=== PATIENT | female | born 1950 | race African-American/Black ===

== ENCOUNTER 2023-01-02 06:35 | Emergency (ER) | payer MEDICARE, SELFPAY ==
[2023-01-02] VITALS (37 sets, daily range): BP systolic 79–120; BP diastolic 52–79; PULSE 85–105; RESP 14–18; TEMP 36.3–36.4; O2SAT 86–100
--- NOTE | ~2023-01-02 | CT_ITS ---
EXAMINATION: CT abdomen pelvis wo con DATE: 01/02/2023 07:46 INDICATION: Nausea and vomiting. Diarrhea. TECHNIQUE: Computed tomography (CT) of the abdomen and pelvis was performed without intravenous contr ast. Automated exposure control and iterative reconstruction technique were employed. The dose-length product was 689.51 mGy-cm. COMPARISON: None. FINDINGS: The visualized portions of the lung bases demonstrate mild atelectasis. There is a small pn eumatocele in right upper lobe. No pleural effusion. The heart size is normal. There are coronary art tigre calcifications. No pericardial effusion. There is a small sliding hiatal hernia. There is diffuse hepatic steatosis. The gallbladder, spleen, and pancreas are normal. There is thickening of the adre nal glands, likely benign. The kidneys are normal. There is no urolithiasis. There is liquid stool in the colon correlating with the symptom of diarrhea. There is diverticulosis of the colon without shyam dence of diverticulitis. The appendix is normal. There is mild aortic atherosclerosis. There are no p athologically enlarged lymph nodes. There is no free intraperitoneal fluid. There is mild thoracolumb ar spondylosis. IMPRESSION: 1. Small sliding hiatal hernia. 2. Diffuse hepatic steatosis. Reviewed, dictated and finalized at location A.
[2023-01-02 07:03] LABS: Basophils Absolute Auto 0.1 K/mm3 (0.0-0.1); Basophils Percent Auto 0.3 % (0.2-1.2); Eosinophils Absolute Auto 0.1 K/mm3 (0-0.3); Eosinophils Percent Auto 0.3 % (0-4.4); Hematocrit 43.2 % (37.0-47.0); Hemoglobin 12.9 g/dL (12.0-15.0); Immature Granulocyte Absolute 0.11 K/mm3 (0.00-0.031); Immature Granulocyte Percent A 0.5 % (0-0.5); Lymphocytes Absolute Auto 1.99 K/mm3 (0.9-3.2); Lymphocytes Percent Auto 8.8 % (18.3-44.2); Mean Corpuscular HGB Conc 29.9 g/dl (32-36); Mean Corpuscular Hemoglobin 26.4 pg (26-34); Mean Corpuscular Volume 88.5 fl (80-100); Mean Platelet Volume 9.5 fl (7.4-10.4); Monocytes Absolute Auto 0.8 K/mm3 (0.1-0.6); Monocytes Percent Auto 3.3 % (2.6-8.5); Neutrophils Absolute Auto 19.5 K/mm3 (1.3-6.7); Neutrophils Percent Auto 86.8 % (45.5-73.1); Platelet Count Result 371 k/mm3 (150-375); Red Blood Count 4.88 M/mm3 (4.2-5.4); Red Cell Distribution Width 13.8 % (11.5-14.5); White Blood Count 22.5 K/mm3 (4.5-10.0)
--- NOTE | 2023-01-02 07:15 | ED.NAVMDI ---
HPI - Nausea/Vomiting/Diarrhea General Chief complaint: Nausea/Vomiting/Diarrhea Stated complaint: vomiting, diarrhea for a couple hours Time Seen by Provider: 01/02/23 07:00 History of Present Illness HPI Narrative: Patient is a 72-year-old female who presents ER with diarrhea as well as nausea and vomiting. She reports that she ate some [employer] last night at 8 PM which is atypical for her. She woke up this morning at 4 AM with diarrhea and vomiting. She has had multiple episodes. No blood. It is all water in her account. She reports that she has no abdominal pain. No fevers or chills or sweats. No known sick contacts. No alleviating factors. Related Data Allergies Allergy/AdvReac Type Severity Reaction Status Date / Time iodine Allergy Swelling Verified 01/02/23 06:36 shellfish derived Allergy Swelling Verified 01/02/23 06:36 of Lip/Tongue/Throat Review of Systems Review of Systems: All systems reviewed & are unremarkable except as noted in HPI and below Constitutional: Constitutional: Denies chills, Denies fatigue and Denies fever(s) ENT: Denies nasal congestion and Denies sore throat Cardiovascular: Cardiovascular: Denies chest pain, Denies radiating jaw, neck or arm pain and Denies slow heart rate Respiratory: Respiratory: Denies cough and Denies dyspnea Gastrointestinal: Gastrointestinal: Denies abdominal pain, Reports diarrhea, Reports nausea and Reports vomiting PMFSH Past Medical History Medical History (Updated 01/02/23 @ 11:29 by Toni Wei MD) Diabetes Hyperlipidemia Hypertension Surgical History Surgical History (Updated 01/02/23 @ 07:20 by Toni Wei MD) History of hysterectomy Hx of tonsillectomy Exam Narrative: GENERAL: Well-appearing, well-nourished, and in no acute distress. HEAD: Normocephalic, atraumatic. CHEST: Clear to auscultation. No respiratory distress. HEART: Regular rate and rhythm. Normal peripheral pulses. ABDOMEN: Soft, nontender, nondistended. EXTREMITIES: Normal range of motion. No edema. SKIN: Warm, dry, no rash. NEURO: Alert and oriented x3. PSYCH: Normal mood and affect. Course Course Emergency Course: Patient eating drinking without issue. Up and ambulatory without dizziness. Blood pressure improved. Discharge home. Vital Signs Vital signs: Vital Signs Temperature 97.4 F L 01/02/23 06:39 Pulse Rate 105 H 01/02/23 06:39 Respiratory Rate 18 01/02/23 06:39 Blood Pressure 119/73 01/02/23 06:39 Pulse Oximetry 97 01/02/23 06:39 Oxygen Delivery Room Air 01/02/23 06:39 Temperature 97.5 F L 01/02/23 06:51 Pulse Rate 96 01/02/23 09:18 Respiratory Rate 14 01/02/23 06:51 Blood Pressure 94/67 L 01/02/23 11:01 Pulse Oximetry 97 01/02/23 11:01 Oxygen Delivery Room Air 01/02/23 06:39 MDM - Nausea/Vomiting/Diarrhea Lab Data 01/02/23 06:54 01/02/23 06:54 Labs: Lab Results 01/02/23 01/02/23 Range/Units 06:54 08:39 WBC 22.5 H (4.5-10.0) K/mm3 RBC 4.88 (4.2-5.4) M/mm3 Hgb 12.9 (12.0-15.0) g/dL Hct 43.2 (37.0-47.0) % MCV 88.5 (80-100) fl MCH 26.4 (26-34) pg MCHC 29.9 L (32-36) g/dl RDW 13.8 (11.5-14.5) % Plt Count 371 (150-375) k/mm3 MPV 9.5 (7.4-10.4) fl Immature Gran % (Auto) 0.5 (0-0.5) % Neut % (Auto) 86.8 H (45.5-73.1) % Lymph % (Auto) 8.8 L (18.3-44.2) % Beadle % (Auto) 3.3 (2.6-8.5) % Eos % (Auto) 0.3 (0-4.4) % Baso % (Auto) 0.3 (0.2-1.2) % Lymph # (Auto) 1.99 (0.9-3.2) K/mm3 Beadle # (Auto) 0.8 H (0.1-0.6) K/mm3 Eos # (Auto) 0.1 (0-0.3) K/mm3 Baso # (Auto) 0.1 (0.0-0.1) K/mm3 Abs Immat Gran (auto) 0.11 H (0.00-0.031) K/mm3 Absolute Neuts (auto) 19.5 H (1.3-6.7) K/mm3 Absolute Nucleated RBC 0.0 (0.0-0.012) K/mm3 Nucleated RBC % 0.0 (0.0-0.2) % Platelet Estimate Adequate (Adequate) Hypochromasia 1+ (NORMAL) Schistocytes None seen
[2023-01-02 07:16] LABS: Alanine Aminotransferase 26 U/L (6-35); Albumin Level 5.1 g/dL (3.5-5.1); Alkaline Phosphatase 81 U/L (38-126); Anion Gap 14 mmol/L (8-16); Aspartate Amino Transferase 31 U/L (14-36); Bilirubin,Total 0.4 mg/dL (0.2-1.3); Blood Urea Nitrogen 17 mg/dL (7-17); Calcium 9.4 mg/dL (8.4-10.2); Carbon Dioxide 26 mmol/L (22-30); Chloride 100 mmol/L (98-107); Estimated CRCL calculation 50 ml/min; Estimated Glomerular Filt Rate > 60; Glucose 194 mg/dL (65-110); Lipase 219 U/L (23-300); Potassium 3.5 mmol/L (3.4-5.0); Sodium 140 mmol/L (137-145)
[2023-01-02 07:23] LABS: Platelet Estimate Adequate (Adequate); Schistocytes None Seen (NORMAL)
[2023-01-02 07:24] LABS: Hypochromasia 1+ (NORMAL)
[2023-01-02] MEDS: SODIUM CHLORIDE 0.9% IV 1,000 ML 999 ML IV CONT ×2 (07:26→08:19)
[2023-01-02] MEDS: ONDANSETRON INJ 4 MG/2 ML VIAL IV PUSH (07:26)
[2023-01-02 09:29] LABS: Appearance Urine Clear (Clear); Bacteria Urine None Seen /hpf; Bilirubin Urine Negative (Negative); Blood Urine Negative (Negative); Color Urine Yellow (Yellow); Glucose Urine UA Negative (Negative); Hyaline Casts Urine Present /lpf; Ketones Urine Negative (Negative); Leukocyte Esterase Ur Negative LEU/UL (Negative); Nitrate Urine Negative (Negative); Protein Urine 1+ mg/dL (Negative); RBC Urine 0-2 /hpf (0-2); Specific Grav Ur 1.013 (1.001-1.035); Squamous Epithelial Cell Urine Occasional /hpf (Few); Urobilinogen Urine 0.2 mg/dL (<2.0); WBC Urine 0-5 /hpf; pH Urine 5.5 (5.0-9.0)
[2023-01-02 09:31] LABS: Add Urine Microscopic? YES
--- NOTE | 2023-01-02 11:05 | PC.NURSE ---
Tolerating food and drink well without emesis.
== END 2023-01-02 11:38 | disposition home or self-care (01) ==
PROVIDERS: Emergency Medicine; Emergency Provider Emergency Medicine; PCP Internal Medicine Infectious Disease
DX: K52.9 Noninfective gastroenteritis and colitis, unspecified (principal); E11.9 Type 2 diabetes mellitus without complications; E78.5 Hyperlipidemia, unspecified; I10 Essential (primary) hypertension; Z90.710 Acquired absence of both cervix and uterus
CPT/HCPCS: 36415; 74176; 80053; 81001; 83690; 85025; 96361; 96374; 99284; J2405; J7030

== ENCOUNTER 2024-04-18 08:12 | Emergency (ER) | payer MEDICARE, SELFPAY ==
[2024-04-18 08:21] VITALS: BP 128/81; PULSE 79; RESP 16; TEMP 37.1; O2SAT 100
--- NOTE | 2024-04-18 08:38 | ED.GENADULT ---
HPI - General Adult General Chief complaint: Dental/Oral Stated complaint: left side tongue swelling Time Seen by Provider: 04/18/24 08:24 History of Present Illness HPI narrative: 73 years old female presents with soreness and swelling left side of the tongue noticed 45 minutes ago after waking up from sleep. She denies any other swelling, trouble breathing, trouble swallowing. Patient report having lumps on the left side of the tongue for years with intermittent flares. This morning noted that she have a new tender lump at the lateral side of the tongue. Patient denies any fever, chills, nausea, vomiting, headache. Schedule for a sinus procedure on the left side April 26 History of diabetes, hypertension, hyperlipidemia, on lisinopril, aspirin. Related Data Home Medications Medication Instructions Recorded Confirmed epinephrine 0.3 mg/0.3 mL 04/18/24 injection, auto-injector lisinopril 20 tablet 04/18/24 mg-hydrochlorothiazide 12.5 mg tablet metformin 850 mg tablet mg 04/18/24 sertraline 50 mg tablet mg 04/18/24 simvastatin 20 mg tablet mg 04/18/24 Allergies Allergy/AdvReac Type Severity Reaction Status Date / Time iodine Allergy Swelling Verified 04/18/24 08:25 shellfish derived Allergy Swelling Verified 04/18/24 08:25 of Lip/Tongue/Throat Review of Systems Review of Systems: All systems reviewed & are unremarkable except as noted in HPI and below PMFSH Past Medical History Medical History Diabetes Hyperlipidemia Hypertension Surgical History Surgical History History of hysterectomy Hx of tonsillectomy Exam Narrative: General appearance: Well-developed, well-nourished Skin: Normal color Head: Normocephalic, nontraumatic Eyes: Clear conjunctiva ENT: Oropharynx normal, ears normal, nose normal. Tongue exam showed a nontender lump at the dorsal side of the left tongue, another lump 1 cm by 0.5 cm at the lateral side with few sores laterally. Slight enlargement of the left side no lymphadenopathy. No other oral abnormality Neck: Supple, nontender Chest and respiratory: Airway patent, no respiratory distress, no accessory muscle use Heart: Regular rate/rhythm Abdomen: Soft, nontender, no organomegaly, quiet bowel sounds Vascular: Normal peripheral pulses, normal capillary refill. Neurologic: Alert and oriented ?3, ROUGHENER is normal as tested, no gross motor deficit Course Vital Signs Vital signs: Vital Signs Temperature 37.1 C 04/18/24 08:21 Pulse Rate 79 04/18/24 08:21 Respiratory Rate 16 04/18/24 08:21 Blood Pressure 128/81 04/18/24 08:21 Pulse Oximetry 100 04/18/24 08:21 Oxygen Delivery Room Air 04/18/24 08:21 Temperature 37.1 C 04/18/24 08:21 Pulse Rate 69 04/18/24 10:15 Respiratory Rate 18 04/18/24 10:15 Blood Pressure 111/72 04/18/24 10:15 Pulse Oximetry 98 04/18/24 10:15 Oxygen Delivery Room Air 04/18/24 08:21 Medical Decision Making MDM Narrative Medical decision making narrative: Patient presents with swelling and soreness left side of the tongue Vital signs are stable on arrival Physical examination showed slight enlargement of the left side of the tongue with few sores laterally and a lump dorsally and a new lump laterally which is red and slightly tender to touch Differential diagnosis includes swelling left side of the tongue secondary to irritation, inflammation secondary to sores and lumps versus angioedema especially patient on lisinopril. Patient's symptoms improved after epinephrine, Solu-Medrol
[2024-04-18] MEDS: diphenhydrAMINE HCl INJ 50 MG/ML VIAL 25 MG IV PUSH (08:55)
[2024-04-18] MEDS: EPINEPHrine HCL INJ 1 MG/ML AMPUL 0.3 MG IM (08:55)
[2024-04-18] MEDS: methylPREDNISolone SOD SUCC 125 MG VIAL IV PUSH (08:55)
[2024-04-18 09:15] VITALS: BP 111/69; PULSE 67; RESP 12; O2SAT 95
[2024-04-18 09:45] VITALS: BP 106/71; PULSE 69; RESP 14; O2SAT 96
[2024-04-18 10:15] VITALS: BP 111/72; PULSE 69; RESP 18; O2SAT 98
--- NOTE | 2024-04-18 10:17 | PC.NURSE ---
Swelling to tongue decreased. Pt reports she is feeling better.
[2024-04-18 10:38] VITALS: BP 111/72; PULSE 66; RESP 16; O2SAT 97
== END 2024-04-18 10:40 | disposition home or self-care (01) ==
PROVIDERS: Emergency Provider Emergency Medicine; PCP Internal Medicine Infectious Disease
DX: T78.3XXA Angioneurotic edema, initial encounter (principal); E11.9 Type 2 diabetes mellitus without complications; I10 Essential (primary) hypertension; E78.5 Hyperlipidemia, unspecified; Z79.82 Long term (current) use of aspirin
CPT/HCPCS: 96372; 96374; 96375; 99284; J0171; J1200; J2919

== ENCOUNTER 2024-06-01 12:19 | Emergency (ER) | payer MEDICARE, SELFPAY ==
[2024-06-01 12:41] VITALS: BP 120/75; PULSE 89; RESP 16; TEMP 36.1; O2SAT 99
[2024-06-01 13:11] VITALS: BP 129/87; PULSE 87; RESP 18; O2SAT 98
--- NOTE | 2024-06-01 13:30 | ED.GENADULT ---
HPI - General Adult General Chief complaint: Nausea/Vomiting/Diarrhea Stated complaint: vomiting Time Seen by Provider: 06/01/24 13:17 History of Present Illness HPI narrative: 73-year-old female presenting to the emergency department for evaluation for nausea and vomiting. Patient reports symptoms started approximately 10:00 a.m. this morning. Patient did have some abdominal cramping and gas with the episode but states that she no emesis since approximately 11:00 a.m.. Patient denies any abdominal pain. Patient denies any pain with urination. Patient denies any coughs colds or fevers. Patient is no distress at time of evaluation. Related Data Home Medications Medication Instructions Recorded Confirmed epinephrine 0.3 mg/0.3 mL 04/18/24 injection, auto-injector lisinopril 20 tablet 04/18/24 mg-hydrochlorothiazide 12.5 mg tablet metformin 850 mg tablet mg 04/18/24 sertraline 50 mg tablet mg 04/18/24 simvastatin 20 mg tablet mg 04/18/24 Allergies Allergy/AdvReac Type Severity Reaction Status Date / Time iodine Allergy Swelling Verified 06/01/24 12:43 shellfish derived Allergy Swelling Verified 06/01/24 12:43 of Lip/Tongue/Throat Review of Systems Review of Systems: All systems reviewed & are unremarkable except as noted in HPI and below PMFSH Past Medical History Medical History Diabetes Hyperlipidemia Hypertension Surgical History Surgical History History of hysterectomy Hx of tonsillectomy Exam Narrative: APPEARANCE: Well appearing, no pain, no distress, well-nourished. HEAD: normocephalic, atraumatic. EYES: PERRLA/EOMI, conjunctivae clear. NOSE: Normal no drainage EARS:TMS clear with good light reflex. THROAT: Pharynx clear, no exudate. NECK: Supple. No adenopathy, no masses. RESPIRATORY: Airway patent, respirations nonlabored. Clear to auscultation bilaterally, no rales, rhonchi, wheezing. CARDIOVASCULAR: Regular rate and rhythm without murmurs rubs or gallops. ABDOMINAL: Soft, nontender, nondistended, normal bowel sounds MUSCULOSKELETAL: Moves all extremities. Strength/ROM intact, No edema, No calf tenderness. NEURO: Alert. Cranial nerves II through XII intact. Good gait. Good coordination SKIN: Warm, dry. Normal Color Course Vital Signs Vital signs: Vital Signs Temperature 96.9 F L 06/01/24 12:41 Pulse Rate 89 06/01/24 12:41 Respiratory Rate 16 06/01/24 12:41 Blood Pressure 120/75 06/01/24 12:41 Pulse Oximetry 99 06/01/24 12:41 Oxygen Delivery Room Air 06/01/24 12:41 Temperature 96.9 F L 06/01/24 12:41 Pulse Rate 88 06/01/24 16:14 Respiratory Rate 18 06/01/24 16:14 Blood Pressure 104/70 06/01/24 16:14 Pulse Oximetry 98 06/01/24 16:14 Oxygen Delivery Room Air 06/01/24 12:41 Medical Decision Making MDM Narrative Medical decision making narrative: 73-year-old female present to the emergency department for evaluation for nausea and vomiting has since resolved. Patient's UA is concerning for urinary tract infection. Patient is afebrile but does have a leukocytosis of 17.9 hemoglobin of 12.4. No acute abnormalities on the patient's CMP. Patient states she does feel strong enough for discharge to home and is requesting discharge home. Patient did tolerate her p.o. challenge here and is in no distress. Patient was educated on reasons to return to the emergency department. All questions concerns were addressed. Differential Diagnosis Differential Diagnosis: Gastritis, diverticulitis, colitis, intractable nausea and vomiting, UTI Vital Signs Vital Signs: Vital Signs Temperature 96.9 F L 06/01/24 12:41 Pulse Rate 89 06/01/24 12:41 Respiratory Rate 16 06/01/24 12:41 Blood Pressure 120/75 06/01/24 12:41 Pulse Oximetry 99 06/01/24 12:41 Oxygen Delivery Room Air 06/01/24 12:41
[2024-06-01] MEDS: ONDANSETRON INJ 4 MG/2 ML VIAL IV PUSH (13:35)
[2024-06-01 13:39] LABS: Hematocrit 40.1 % (37.0-47.0); Hemoglobin 12.4 g/dL (12.0-15.0); Mean Corpuscular HGB Conc 30.9 g/dl (32-36); Mean Corpuscular Hemoglobin 26.4 pg (26-34); Mean Corpuscular Volume 85.5 fl (80-100); Mean Platelet Volume 9.7 fl (7.4-10.4); Platelet Count Result 309 k/mm3 (150-375); Red Blood Count 4.69 M/mm3 (4.2-5.4); Red Cell Distribution Width 13.2 % (11.5-14.5); White Blood Count 17.9 K/mm3 (4.5-10.0)
[2024-06-01 13:54] LABS: Lactic Acid Reflex 1.5 mmol/L (0.7-2.0)
[2024-06-01 13:55] LABS: Alanine Aminotransferase 29 U/L (6-35); Albumin Level 4.7 g/dL (3.5-5.1); Alkaline Phosphatase 55 U/L (38-126); Anion Gap 13 mmol/L (4-12); Aspartate Amino Transferase 35 U/L (14-36); Bilirubin,Total 0.5 mg/dL (0.2-1.3); Blood Urea Nitrogen 16 mg/dL (7-17); Calcium 9.6 mg/dL (8.4-10.2); Carbon Dioxide 26 mmol/L (22-30); Chloride 99 mmol/L (98-107); Estimated CRCL calculation 55 ml/min; Estimated Glomerular Filt Rate > 60; Glucose 156 mg/dL (65-110); Potassium 3.7 mmol/L (3.4-5.0); Sodium 138 mmol/L (137-145)
[2024-06-01 14:15] LABS: Band Neutrophils Percent 4 % (0-6); Lymphocytes Absolute Manual 0.71 K/mm3 (1.1-4.5); Monocytes Absolute Manual 0.71 K/mm3 (0.1-0.90); Monocytes Percent Manual 4 % (3-9); Neutrophils Absolute Manual 16.46 K/mm3 (1.7-7.2); Neutrophils Percent Manual 88 % (46-73); Platelet Estimate Adequate (Adequate); Total Cells Counted 100
[2024-06-01 14:16] VITALS: BP 108/70; O2SAT 98
[2024-06-01 14:16] LABS: Large Platelets Present; Schistocytes None Seen
[2024-06-01 14:17] LABS: Hypochromasia 1+
[2024-06-01 14:48] LABS: Add Urine Microscopic? YES; Appearance Urine Cloudy (Clear); Bacteria Urine 2+ /hpf; Bilirubin Urine Negative (Negative); Blood Urine 1+ (Negative); Color Urine Yellow (Yellow); Glucose Urine UA Negative (Negative); Ketones Urine Trace mg/dL (Negative); Leukocyte Esterase Ur 2+ LEU/UL (Negative); Nitrate Urine Negative (Negative); Protein Urine 3+ mg/dL (Negative); RBC Urine 0-2 /hpf (0-2); Specific Grav Ur 1.024 (1.001-1.035); Squamous Epithelial Cell Urine Moderate /hpf (Few); Urobilinogen Urine 0.2 mg/dL (<2.0); WBC Urine 21-50 /hpf (0-3)
[2024-06-01 16:14] VITALS: BP 104/70; PULSE 88; RESP 18; O2SAT 98
== END 2024-06-01 16:19 | disposition home or self-care (01) ==
PROVIDERS: Emergency Provider Emergency Medicine; PCP Internal Medicine Infectious Disease
DX: N39.0 Urinary tract infection, site not specified (principal); R11.2 Nausea with vomiting, unspecified; E11.9 Type 2 diabetes mellitus without complications; Z79.84 Long term (current) use of oral hypoglycemic drugs; E78.5 Hyperlipidemia, unspecified; I10 Essential (primary) hypertension
CPT/HCPCS: 36415; 80053; 81001; 83605; 85025; 87086; 96365; 96375; 99284; J0696; J2405